=== PATIENT | male | born 1965 | race African-American/Black ===

== ENCOUNTER 2016-12-20 14:00 | Emergency (ER) | payer MEDICARE ==
[~2016-12-20] VITALS: Ht 182.9 cm; Wt 122.5 kg
[~2016-12-20 14:00] MED LIST: ACETAMINOPHEN &1 TA1 PO; AMITRIPTYLINE100 MG PO; AMITRIPTYLINE50 MG PO; AMOXICILLIN500 M2 PO; AMOXICOT500 MG PO; ASPIRIN 325MG325 MG; ASPIRIN325 M1 PO; AUGMENTIN 875-1 EACH PO; CEFTIN500 MG PO; CIPRO 500MG TA500 MG PO; COUMADIN 5MG TAB5 MG PO; COUMADIN 7.5MG7.5 MG; COUMADIN10 MG; DIAZEPAM10 MG PO; ETODOLAC200 MG PO; FLAGYL500 MG PO; FLEXERIL10 M1 PO; FLEXERIL10 MG PO; GABAPENTIN 600600 MG PO; HYDROCODONE BIT PO; HYDROCODONE-APA1 TA1 PO; HYDROCODONE/ACE1 TA5 PO; IBU-8800 MG PO; K + POTASSIUM20 MEQ PO; KEFLEX 500MG.500 MG PO; LIDODERM 5% PA1 EACH TD; LIPITOR80 M1 PO; LIPITOR80 MG PO; LORTAB 5/500 501 TAB PO; LORTAB 500 MG-71 TAB PO; MEDROL 4MG. DOSE4 MG PO; METOPROLOL SUC100 M1 PO; MOTRIN600 MG PO; NAPROSYN 500MG500 MG PO; NAPROSYN500 M1 PO; NAPROXEN SODIU500 MG PO; NICORETTE4 MG PO; NORCO 325 MG-51 TAB PO; NORVASC 10MG. T10 MG; NORVASC 10MG. T10 MG PO; NORVASC 5MG. TAB5 MG PO; OMEPRAZOLE DR20 MG PO; PEN-VK500 MG PO; PREDNISONE50 MG PO; ROBAXIN-750750 MG PO; TESSALON PERLE100 MG PO; TRAMADOL 50MG T50 MG PO; ULTRAM50 MG PO; VALIUM10 MG PO; VICODIN 7.5/501 EACH PO; VOLTAREN75 MG PO; WARFARIN SODIUM10 MG PO; XARELTO15 MG PO; XARELTO20 MG PO; ZITHROMAX Z PA250 MG PO; ZOFRAN ODT4 MG PO
--- NOTE | 2016-12-20 14:26 | Emergency Room Report ---
History of Present Illness Time Seen by MD Balbuena Presenting Problem in Triage Pt arrived:Walked Presenting Problem:CL CUT LEFT THUMB. PT STATES HE CURRENTLY TAKES BLOOD THINNERS SO HE WAS CONCERNED ABOUT BLOOD LOSS. 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 N Clinical Suspician of Infection? N Mental Status: 1 - Regular (Normal Baseline) Sepsis Risk:Low Sepsis Risk Have you (or family members/close friends) recently traveled outside the [place]? N If Yes, where/when: Have you had exposure to infectious disease within the past month? N TB? Other? Specify: Abrasion to dorsal left thumb, is on Xarelto so experienced some persistent bleeding, which has stopped. Occurred when getting off ladder. No weakness or numbness. ALLERGIES Coded Allergies: venom-honey bee (BEE VENOM (HONEY BEE)) (05/28/16) Home Medications Active Scripts HYDROCODONE/ACETAMINOPHEN (Hydrocodon-Acetaminophn 10-325) 1 TAB PO QID #120 TAB Prov: 04/16/16 Reported Medications Rivaroxaban (Xarelto) 20 MG PO QHS AMLODIPINE BESYLATE (Norvasc) 5 MG PO QHS History Medical History General CAD? Yes Angina: Yes GA: Yes Hypertension? Yes Hyperlipidemia? No CHF? No DVT? Yes PE? No COPD? No Asthma? No Anemia? No GERD? No Gastric ulcers? No GI Bleed? No Hernia? No Thyroid Problems? Yes Hypothyroidism? Yes CVA? No Seizures? No Diabetes? No Insulin Dependent: No Insulin Pump: No Home FSBS? No Renal Insuffiency? No End Stage Renal Disease? No UTI? No Stones? No BPH? No GB Disease: Yes Nephritic Syndrome? No Asplenia? No Hepatitis? No Sickle Cell Disease? No Arthritis? No Migraines? Yes Cataracts? No Glaucoma? No MRSA? No HIV? No TB? No Anxiety? No Depression? Yes Cancer? No More? 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 No: respiratory distress. Cardiovascular no peripheral edema Extremities non-tender, normal range of motion, normal capillary refill Neurologic alert, normal exam, no motor/sensory deficits, oriented x 3 Skin normal color, abrasions (minor abrasion 3 mm L thumb), Not a charla laceration; area cleansed and irrigated and reinspected; no FB noted. No active bleeding. Very shallow and small. Medical Decision Making LABS/Meds/Orders Pt receiving controlled substance in ED? No Departure Departure Time of Disposition 1424 Disposition DC Home or Self Care(routine) Clinical Impression Primary Impression: Abrasion of thumb, left Condition STABLE Patient Instructions Skin Wound Additional Instructions See your family doctor as needed; keep area covered and dry while healing, especially while at work. Discharge Counseling Counseled pt/family regarding diagnosis, home care, follow up needs (Repair not indicated;shallow) ED Critical Care Critical Care No at 1424
[2016-12-20 14:30] VITALS: BP 146/78
== END 2016-12-20 14:30 | disposition home or self-care (01) ==
LOC: ER 14:00
DX: S60.312A Abrasion of left thumb, initial encounter (principal); W22.8XXA Striking against or struck by other objects, initial encounter; Y92.89 Other specified places as the place of occurrence of the external cause